=== PATIENT | male | born 1980 | race Caucasian/White ===

== ENCOUNTER 2024-02-16 13:56 | Inpatient (IN) | payer OTHER, SELFPAY ==
[2024-02-16] VITALS (29 sets, daily range): BP systolic 184–281; BP diastolic 78–150; PULSE 70–95; RESP 8–25; TEMP 36.4; O2SAT 95–97; BMI 44.3
--- NOTE | 2024-02-16 | DI.CT.S_ITS ---
PROCEDURE: CT ABDOMEN ADRENAL PROTOCOL INDICATIONS: adrenal tumor TECHNIQUE: Noncontrast 3 mm thick sections acquired from the diaphragms to the iliac crests. After the administration of intravenous contrast, 3 mm thick venous-phase and 15-minute delayed images acquired from the diaphragms to the iliac crests. For radiation dose reduction, the following was used: automated exposure control, adjustment of mA and/or kV according to patient size. COMPARISON: [facility], CR, XR CHEST 1V, 02/16/2024, 14:07. FINDINGS: Image quality: Excellent. Lower chest: Unremarkable. ABDOMEN: Adrenal Glands: No adrenal nodules or abnormal enhancement. Liver: No solid mass. Hepatic hypoattenuation. Mild hepatomegaly measuring up to 20.3 cm in the craniocaudal dimension (57) Gallbladder: No radiopaque gallstones or wall thickening. Biliary ducts: No biliary dilation. Pancreas: No ductal dilation. Spleen: Size is within normal limits. Kidneys and Ureters: No hydronephrosis. No solid mass. No complex renal cystic lesion which requires follow up. Stomach and Bowel: Normal colonic caliber, without significant wall thickening. No bowel obstruction in the field of view. Peritoneum: No abnormal intraperitoneal fluid. No free air. Ventral Wall: No hernia. Abdominal Nodes: No retroperitoneal or mesenteric adenopathy by size criteria. Vessels: Aorta and inferior vena cava are normal in size. Bones: No acute osseous abnormality. Diffuse idiopathic skeletal hyperostosis of the thoracolumbar spine () IMPRESSION: 1. No adrenal mass or nodularity. 2. Hepatomegaly with hepatic steatosis. Dictated by: Avinash Vargas M.D. on 02/17/2024 at 0:24 Approved by: Avinash Vargas M.D. on 02/17/2024 at 0:31
--- NOTE | 2024-02-16 14:09 | EKG_ITS ---
[address] [address] Test Date: 2024-02-16 Pat Name: Robert Arceo Department: [facility] Room: Gender: Male Public Relations Account Supervisor: ILANA : 1980 Requested By: Order Number: [id number] Reading MD: Derrick Erazo Measurements Intervals [place] Rate: 110 P: 38 MD: 158 QRS: -10 QRSD: 94 T: 102 QT: 362 QTc: 489 Interpretive Statements NSR Nonspecific ST and T wave abnormality Electronically Signed On 02-19-2024 15:53:36 PDT by Derrick Erazo
--- NOTE | 2024-02-16 14:09 | DI.RAD.S_ITS ---
PROCEDURE: XR CHEST 1V INDICATIONS: chest pain TECHNIQUE: One view of the chest was acquired. COMPARISON: None. FINDINGS: Surgical changes and devices: None. Lungs and pleura: Lungs are clear. No pleural effusions or pneumothorax. Mediastinum: Mediastinal contours appear normal. Heart size is normal. Bones and chest wall: No suspicious bony lesions. Overlying soft tissues appear unremarkable. IMPRESSION: No acute cardiopulmonary abnormality is seen. Dictated by: yR Crews M.D. on 02/16/2024 at 15:33 Approved by: Ry Crews M.D. on 02/16/2024 at 15:34
--- NOTE | 2024-02-16 14:34 | EKG_ITS ---
[address] [address] [place] [address] Test Date: 2024-02-16 Pat Name: Robert Arceo Department: [facility] Room: 90B Gender: Male Coding Quality Analyst: ILANA : 1980 Requested By: Order Number: [id number] Reading MD: Derrick Erazo Measurements Intervals [place] Rate: 109 P: 48 NC: 152 QRS: -11 QRSD: 96 T: 113 QT: 348 QTc: 468 Interpretive Statements Undetermined rhythm Nonspecific ST and T wave abnormality Electronically Signed On 02-19-2024 15:54:10 PDT by Derrick Erazo
--- NOTE | 2024-02-16 14:36 | EKG_ITS ---
[address] [address] [place] [address] Test Date: 2024-02-16 Pat Name: Robert Arceo Department: [facility] Room: 90B Gender: Male Director And Professor: ILANA : 1980 Requested By: Order Number: [id number] Reading MD: Derrick Erazo Measurements Intervals [place] Rate: 111 P: 36 FL: 146 QRS: -13 QRSD: 94 T: 82 QT: 362 QTc: 492 Interpretive Statements NSR Nonspecific ST and T wave abnormality Electronically Signed On 02-19-2024 15:54:04 PDT by Derrick Erazo
[2024-02-16 14:51] LABS: Add Manual Diff / Slide Review NO; Basophils Absolute Auto 100 /uL (0-100); Basophils Percent Auto 0.5 % (0-2); Eosinophils Absolute Auto 200 /uL (0-450); Eosinophils Percent Auto 1.3 % (2-4); Hemoglobin 15.1 g/dL (13.5-17.5); Lymphocytes Absolute Auto 3200 /uL (1100-4500); Lymphocytes Percent Auto 24.3 % (25-40); Mean Corpuscular HGB Conc 34.3 % (30-36); Mean Corpuscular Hemoglobin 28.1 PG (26-34); Mean Corpuscular Volume 81.9 fL (80-100); Monocytes Absolute Auto 800 /uL (0-900); Monocytes Percent Auto 5.9 % (3-14); Neutrophils Absolute Auto 8900 /uL (1500-7000); Platelet Count 293 X10^3/uL (150-400); Red Blood Cell Count 5.37 X10^6/uL (4.5-5.9)
[2024-02-16 14:59] LABS: INR 1.2 (0.9-1.3); Prothrombin Time 13.2 SECONDS (9.4-12.5)
[2024-02-16 15:01] LABS: PTT Partial Thromboplastin Tim 40 SECONDS (25.1-36.5)
[2024-02-16 15:07] LABS: Alanine Aminotransferase 28 IU/L (<50); Albumin 4.6 g/dL (3.5-5.0); Albumin Globulin Ratio 1.2 (1.0-2.8); Alkaline Phosphatase 86 U/L (38-126); Aspartate Aminotransferase 28 IU/L (17-59); BUN Creatinine Ratio 10.5 (6-22); Bilirubin Total 0.9 mg/dL (0.2-1.3); Blood Urea Nitrogen 13 mg/dL (9-20); Calcium 9.1 mg/dL (8.4-10.2); Carbon Dioxide 36 mmol/L (22-32); Chloride 96 mmol/L (98-107); Creatine Kinase 138 U/L (55-170); Estimated Glomerular Filt Rate > 60 mL/min (>60); Globulin 3.7 g/dL (1.7-4.1); Glucose 125 mg/dL (70-100); HEMOLYSIS < 15 (0-50); Lipase 66 U/L (23-300); Magnesium 1.8 mg/dL (1.6-2.3); Sodium 140 mmol/L (137-145); Total Protein 8.3 g/dL (6.3-8.2)
[2024-02-16 15:09] LABS: D Dimer 562 ng/ml (<500)
[2024-02-16 15:10] LABS: Potassium 2.2 mmol/L (3.4-5.1)
[2024-02-16] MEDS: METOPROLOL TARTRATE 5 MG/5 ML INJ IV (15:10)
[2024-02-16] MEDS: ASPIRIN 81 MG CHEW TAB 324 MG PO (15:10)
[2024-02-16 15:15] LABS: NT-proBNP (BNP-Adult 18+) 882 pg/mL (<125); Troponin I 0.018 ng/mL (0.01-0.034)
[2024-02-16] MEDS: POTASSIUM CHLORIDE 20 MEQ TAB 40 MEQ PO (15:23)
[2024-02-16] MEDS: POTASSIUM CHLORIDE IN WATER 10 MEQ/100 ML PIGGYBACK 100 MEQ IV ×4 (15:24→19:13)
--- NOTE | 2024-02-16 15:51 | ED_ITS ---
HPI - General Adult General Chief complaint: Hypertension Stated complaint: high bp Time Seen by Provider: 02/16/24 14:42 Source: patient Mode of arrival: Ambulatory History of Present Illness HPI narrative: Patient is a 43-year-old male who does not take any medications has not been to a doctor in a number of years presenting today with palpitations. He reports that he travels frequently for work however the last couple of days he has been having more and more palpitations. Denies any dizziness or lightheadedness he has not passed out. No significant pain. Related Data Previous Rx's Medication Instructions Recorded lisinopril 20 2 tab PO QDAY #30 tabs 09/09/19 mg-hydrochlorothiazide 12.5 mg tablet ciprofloxacin 0.3 %-dexamethasone 4 drop otic (ear) BID 7 days #7.5 02/20/20 0.1 % ear drops,suspension mL (Ciprodex) Allergies Allergy/AdvReac Type Severity Reaction Status Date / Time No Known Drug Allergies Allergy Verified 02/16/24 14:09 Patient History Surgical History Status post myringotomy with insertion of tube History of tonsillectomy Status post knee surgery Family History Brother Age: 39 Essential hypertension Father Essential hypertension Grandfather Age: 85 Essential hypertension Grandmother Age: 84 Essential hypertension Mother Age: 62 Essential hypertension Grandfather Cerebrovascular accident (CVA), unspecified mechanism Grandmother Dementia Social History Smoking Status: Never smoker Smoking Status: Never smoker alcohol intake frequency: a few times a month Substance Use Type: does not use Exam Initial Vital Signs Initial Vital Signs: Vital Signs Temperature 97.6 F 02/16/24 14:03 Pulse Rate 72 02/16/24 14:03 Respiratory Rate 16 02/16/24 14:03 Blood Pressure 227/129 H 02/16/24 14:03 Pulse Oximetry 96 02/16/24 14:03 Oxygen Delivery Method Room Air 02/16/24 14:03 GENERAL: Alert pleasant 43-year-old male and in no acute distress. HEENT: Head atraumatic,EOMI, pupils reactive, face symmetric, moist mucous membranes CARDIOVASCULAR: Regular rate and rhythm without murmurs, rubs or gallops. RESPIRATORY: Breath sounds equal bilaterally, no wheezes rales or rhonchi. ABDOMEN: Soft, nontender. Normoactive bowel sounds all 4 quadrants. No guarding or rebound. EXTREMITIES: Normal range of motion, no clubbing or edema. Neurovascularly intact NEUROLOGICAL: Alert and oriented x4.Normal gait and speech. Cranial nerves II through XII grossly intact. SKIN: Warm, dry, no laceration, no petechiae, no rashes or lesions. Course Orders Ordered: ED Orders 02/16/24 14:09 XR chest 1V Stat EKG-12 Lead Stat 02/16/24 14:29 Complete Blood Count AUTO DIFF Stat Comprehensive Metabolic Panel Stat D Dimer Stat Lipase Stat Magnesium Stat NT-proBNP (BNP-Adult 18+) Stat PTT Partial Thromboplastin Maikol Stat Prothrombin Time INR Stat Troponin & CK Cardiac Panel Stat 02/16/24 16:03 EC echo doppler complete Stat 02/16/24 16:09 EKG-12 Lead Stat Acetaminophen (Acetaminophen 325 Mg Tablet) 650 mg PO Q6H PRN PRN Reason: Fever/Mild Pain (1-3) Hydralazine HCl (Hydralazine 20 Mg/Ml Vial) 10 mg IV Q6HR PRN PRN Reason: Hypertension SBP > 180 Last Admin: 02/16/24 19:10 Dose: 10 mg Documented By: AYDEE POTASSIUM CHLORIDE IN WATER (Potassium Cl 10 Meq/100 Ml Julisa) 10 meq in 100 mls @ 100 mls/hr IV Q1H VERENA Stop: 02/16/24 19:14 Last Infusion: 02/16/24 19:09 Dose: Infused Documented By: Admin: 02/16/24 17:54 Dose: 100 mls/hr Documented By: Infusion: 02/16/24 17:53 Dose: Infused Documented By: Admin: 02/16/24 16:27 Dose: 100 mls/hr Documented By: Infusion: 02/16/24 16:27 Dose: Infused Documented By: Admin: 02/16/24 15:24 Dose: 100 mls/hr Documented By: ANGELINA Naloxone HCl (Naloxone 0.4 Mg/Ml Vial) 0.2 mg IV Q2MIN PRN PRN Reason: Opiate Reversal Discontinued Medications Aspirin (Aspirin 81 Mg Chew Tab) 324 mg PO NOW ONE Stop: 02/16/24 14:10 Last Admin: 02/16/24 15:10 Dose: 324 mg Documented By: SB Metoprolol Tartrate (Metoprolol Tartrate 5 Mg/5 Ml Inj) 5 mg IV NOW ONE Stop: 02/16/24 14:44 Last Admin: 02/16/24 15:10 Dose: 5 mg Documented By: ANGELINA Potassium Chloride (Potassium Chloride 20 Meq Tab) 40 meq PO NOW ONE Stop: 02/16/24 15:11 Last Admin: 02/16/24 15:23 Dose: 40 meq Documented By: SB Vital Signs Vital signs: Vital Signs - 8 hr 02/16/24 14:03 02/16/24 16:00 Temperature 97.6 F Pulse Rate 72 Respiratory Rate 16 Blood Pressure 227/129 H 274/146 H Pulse Oximetry 96 Oxygen Delivery Method Room Air Medical Decision Making Lab Data 02/16/24 14:29 02/16/24 14:29 Labs: Lab Results 02/16/24 Range/Units 14:29 WBC 13.0 H (4.5-11.0) X10^3/uL RBC 5.37 (4.5-5.9) X10^6/uL Hgb 15.1 (13.5-17.5) g/dL Hct 44.0 (41-53) % MCV 81.9 (80-100) fL MCH 28.1 (26-34) PG MCHC 34.3 (30-36) % RDW 14.0 (11.6-14.8) % Plt Count 293 (150-400) X10^3/uL Neut % (Auto) 68.0 (50-75) % Lymph % (Auto) 24.3 L (25-40) % [place] % (Auto) 5.9 (3-14) % Eos % (Auto) 1.3 L (2-4) % Baso % (Auto) 0.5 (0-2) % Neut # (Auto) 8900 H (9252-6774) /uL Lymph # (Auto) 3200 (1051-3314) /uL [place] # (Auto) 800 (0-900) /uL Eos # (Auto) 200 (0-450) /uL Baso # (Auto) 100 (0-100) /uL PT 13.2 H (9.4-12.5) SECONDS INR 1.2 (0.9-1.3) APTT 40 H (25.1-36.5) SECONDS D-Dimer 562 H (<500) ng/ml Sodium 140 (137-145) mmol/L Potassium 2.2 L* (3.4-5.1) mmol/L Chloride 96 L (98-107) mmol/L Carbon Dioxide 36 H (22-32) mmol/L BUN 13 (9-20) mg/dL Creatinine 1.24 (0.66-1.25) mg/dL Estimated GFR > 60 (>60) mL/min BUN/Creatinine Ratio 10.5 (6-22) Glucose 125 H (70-100) mg/dL Calcium 9.1 (8.4-10.2) mg/dL Magnesium 1.8 (1.6-2.3) mg/dL Total Bilirubin 0.9 (0.2-1.3) mg/dL AST 28 (17-59) IU/L ALT 28 (<50) IU/L Alkaline Phosphatase 86 (38-126) U/L Total Creatine Kinase 138 (55-170) U/L Troponin I 0.018 (0.01-0.034) ng/mL NT-Pro-B Natriuret Pep 882 H (<125) pg/mL Total Protein 8.3 H (6.3-8.2) g/dL Albumin 4.6 (3.5-5.0) g/dL Globulin 3.7 (1.7-4.1) g/dL Albumin/Globulin Ratio 1.2 (1.0-2.8) Lipase 66 (23-300) U/L Imaging Data Chest x-ray: Radiologist's Impression: PROCEDURE: XR CHEST 1V INDICATIONS: chest pain TECHNIQUE: One view of the chest was acquired. COMPARISON: None. FINDINGS: Surgical changes and devices: None. Lungs and pleura: Lungs are clear. No pleural effusions or pneumothorax. Mediastinum: Mediastinal contours appear normal. Heart size is normal. Bones and chest wall: No suspicious bony lesions. Overlying soft tissues appear unremarkable. IMPRESSION: No acute cardiopulmonary abnormality is seen. Dictated by: Ry Crews M.D. on 02/16/2024 at 15:33 ECG Data Attestation: I personally reviewed and interpreted this ECG as follows: Interpretation: Initial EKGs difficult to interpret looks like sinus rhythm with frequent PVCs PACs no obvious ST changes EKG 2. Shows sinus rhythm rate 92 AL interval 148 QRS [address] changes no PVCs MDM Narrative Medical decision making narrative: MDM CC: Palpitations Complicating co-morbidities: Noncompliant Medical records reviewed: No real PCP notes was seen at walk-in clinic in 2019 Differential considered: Arrhythmia acute coronary syndrome Exam documented above, pertinent findings include: Alert pleasant well- appearing 43-year-old male BMI 40 Lab Test results independently reviewed as above. Pertinent findings: Potassium 2.2 Creatinine 1.2 previously 0.9 and 2016 WBC 13 D-dimer 562 Independently reviewed EKG as above: Arrhythmia frequent PVCs wider complex Repeat EKGs shows a sinus rhythm without ST changes or PVC Imaging studies independently reviewed: Consultations: Dr. Lazcano accepts patient Treatments: Lopressor 5 mg, K rider 40 and oral potassium Re-evaluations: Patient's EKG actually changed and improved after metoprolol. No longer having any PVCs Discussion: Patient 43-year-old male presenting to palpitations. Found to be extremely hypokalemic with potassium of 2.2. Unclear why, he denies any nausea vomiting or diarrhea he reports he is taking absolutely no medications. He was previously on hydrochlorothiazide/lisinopril but he says he was not able to get a refill on that without being seen by his provider. He also remains quite hypertensive with a blood pressure in the 200s. Troponin is negative BNP slightly elevated at 882 Discharge Plan Departure Patient Disposition: Admitted as Observation Clinical Impression: Acute hypokalemia, Hypertension Admit Date/Time: 02/16/24 16:09 Admit Provider: Michael Lazcano V
--- NOTE | 2024-02-16 16:21 | EKG_ITS ---
[address] [address] Test Date: 2024-02-16 Pat Name: Robert Arceo Department: Room: 90B Gender: Male Service Operator: ILANA : 1980 Requested By: Order Number: [id number] Reading MD: Derrick Erazo Measurements Intervals [place] Rate: 92 P: 36 IL: 184 QRS: -28 QRSD: 84 T: 57 QT: 384 QTc: 474 Interpretive Statements Normal sinus rhythm Nonspecific ST and T wave abnormality Electronically Signed On 02-19-2024 15:53:49 PDT by Derrick Erazo
--- NOTE | 2024-02-16 18:05 | PC.NURSE ---
Dr. Lazcano present at bedside for admission assessment. This RN assisted with doing bilateral BP assessment for Dr. Lazcano. Patient's BP continues to be significantly high. Right forearm BP was 247/134 and Left forearm BP was 280/140. Dr. Lazcano acknowledges high BP, no new orders for BP management given at this time. Dr. Lazcano does request that nursing staff begin 24 hour urine collection. Start time for this test is 1800. Lab contacted for proper collection containers.
--- NOTE | 2024-02-16 18:38 | P.HP_ITS ---
History of Present Illness History of Present Illness Date Patient Seen: 02/16/24 Time Patient Seen: 18:10 Date of Onset of Symptoms: 02/16/24 Chief complaint: high bp Narrative: 43-year-old man on who has not seen a primary care provider in several years, with history of hypertension, similarly off medications for the past several years, presented today with palpitations. He was found to have a serum potassium of 2.2 with EKG changes and was administered IV potassium riders, and experienced improvement in his palpitations and normalization of his EKG patterns. He is admitted for further management and evaluation. He notes a long-standing history of hypertension dating back to age 13. Previous workup has been unrevealing. He was on lisinopril/hydrochlorothiazide for many years but stopped over 5 years ago due to his frequent travel schedule, and inability to arrange office follow-up visits. He denies chest pain, shortness of breast, nausea, vomiting, diarrhea, diuretic use, muoa-ryx-kryiabd supplements besides vitamin C and fish oil, licorice ingestion, but does note a significant family history of high blood pressure. [facility], [facility] Surgical History Status post myringotomy with insertion of tube History of tonsillectomy Status post knee surgery Family History Brother Age: 39 Essential hypertension Father Essential hypertension Grandfather Age: 85 Essential hypertension Grandmother Age: 84 Essential hypertension Mother Age: 62 Essential hypertension Grandfather Cerebrovascular accident (CVA), unspecified mechanism Grandmother Dementia Social History Smoking Status: Never smoker Meds Home Medications and Allergies Home Medications Medication Instructions Recorded Confirmed Type lisinopril 20 2 tab PO QDAY #30 tabs 09/09/19 02/20/20 Rx mg-hydrochlorothiazide 12.5 mg tablet ciprofloxacin 0.3 %-dexamethasone 4 drop otic (ear) BID 7 days #7.5 02/20/20 02/20/20 Rx 0.1 % ear drops,suspension mL (Ciprodex) Allergies Allergy/AdvReac Type Severity Reaction Status Date / Time No Known Drug Allergies Allergy Verified 02/16/24 14:09 Exam Vital Signs (past 8 hours): - 02/16/24 14:03 02/16/24 16:00 02/16/24 16:11 Temperature 97.6 F Pulse Rate 72 89 Respiratory Rate 16 Blood Pressure 227/129 H 274/146 H Pulse Oximetry 96 Oxygen Delivery Method Room Air 02/16/24 16:17 02/16/24 16:17 02/16/24 16:27 Temperature Pulse Rate 92 H 93 H Respiratory Rate 22 Blood Pressure 281/142 H Pulse Oximetry 95 96 Oxygen Delivery Method 02/16/24 16:27 02/16/24 16:30 02/16/24 16:30 Temperature Pulse Rate 85 Respiratory Rate 8 L Blood Pressure 251/126 H 223/113 H Pulse Oximetry 96 Oxygen Delivery Method 02/16/24 17:00 02/16/24 17:00 02/16/24 17:30 Temperature Pulse Rate 85 89 Respiratory Rate 13 15 Blood Pressure 230/118 H 243/141 H Pulse Oximetry 96 96 Oxygen Delivery Method 02/16/24 17:36 Temperature Pulse Rate 86 Respiratory Rate 13 Blood Pressure 244/148 H Pulse Oximetry 97 Oxygen Delivery Method Room Air Oxygen Delivery Method Room Air Narrative Exam Narrative: GENERAL: This is a well-nourished, well-developed patient, in no apparent distress. blood pressure right forearm 247/134, blood pressure left forearm 280/140 supine. HEAD: Atraumatic. Normocephalic. No temporal or scalp tenderness. EYES: Pupils equal round and reactive. Extraocular motions intact. No scleral icterus. No injection or drainage. ENT: Mucous membranes pink and moist. NECK: Trachea midline. No JVD, bruits or lymphadenopathy. Supple, nontender, no meningeal signs. CARDIOVASCULAR: Regular rate and rhythm without murmurs, gallops, or rubs. RESPIRATORY: Clear to auscultation. GASTROINTESTINAL: Abdomen soft, non-tender, nondistended. EXTREMITIES: No clubbing, cyanosis, or edema. BACK: Nontender without deformity or crepitance. No flank tenderness. NEUROLOGIC: Alert, oriented, speech fluent, full upper and lower motor strength, no focal deficits evident. DERMATOLOGIC: No rashes or skin lesions. Objective ECG Impression: EKG (1434): Sinus rhythm with bigeminal PVCs, normal intervals, no U-waves Repeat EKG viewed in the ER shows sinus rhythm with resolution of PVCs. Imaging Chest x-ray: My impression: Normal cardiac and mediastinal silhouette, no rib notching Radiologist's impression: No acute cardiopulmonary abnormality is seen. Labs 02/16/24 14:29 02/16/24 14:29 Labs: Laboratory Results - last 24 hr 02/16/24 14:29 WBC 13.0 H RBC 5.37 Hgb 15.1 Hct 44.0 MCV 81.9 MCH 28.1 MCHC 34.3 RDW 14.0 Plt Count 293 Neut % (Auto) 68.0 Lymph % (Auto) 24.3 L [place] % (Auto) 5.9 Eos % (Auto) 1.3 L Baso % (Auto) 0.5 Neut # (Auto) 8900 H Lymph # (Auto) 3200 [place] # (Auto) 800 Eos # (Auto) 200 Baso # (Auto) 100 PT 13.2 H INR 1.2 APTT 40 H D-Dimer 562 H Sodium 140 Potassium 2.2 L* Chloride 96 L Carbon Dioxide 36 H BUN 13 Creatinine 1.24 Estimated GFR > 60 BUN/Creatinine Ratio 10.5 Glucose 125 H Calcium 9.1 Magnesium 1.8 Total Bilirubin 0.9 AST 28 ALT 28 Alkaline Phosphatase 86 Total Creatine Kinase 138 Troponin I 0.018 NT-Pro-B Natriuret Pep 882 H Total Protein 8.3 H Albumin 4.6 Globulin 3.7 Albumin/Globulin Ratio 1.2 Lipase 66 Assessment & Plan Assessment & Plan narrative: 1. Severe hypokalemia. Strongly suspect underlying primary hyperaldosteronism given severe hypertension diagnosis. Check serum plasma renin activity, 24 hour urine for VMA and metanephrines, and adrenal protocol CT. Replete potassium and monitor closely on telemetry. 2. EKG changes due to 1. Resolving with repletion of hypokalemia. Monitor on telemetry. 3. Severe hypertension. Suspect primary hyperaldosteronism. Evaluate as detailed above. Administer hydralazine 10 mg every 6 hours as needed for SBP greater than equal to 180 mmHg. 4. Obesity. 5. DVT prophylaxis: Low risk. 6. Code status: Full code. Time-Based Coding :: [TOTAL MINUTES] spent with patient and on the chart (including review of chart, obtaining history, exam, reviewing outside data, placing orders, documenting exam and treatment plan, and counseling patient) on [DATE]. PROFEE Charge Codes Initial inpatient/observation care: [id number]
[2024-02-16] MEDS: HYDRALAZINE 20 MG/ML VIAL 10 MG IV (19:10)
--- NOTE | 2024-02-16 20:05 | PC.NURSE ---
Hospitalist paged in regards to patient's BP continuing to be elevated despite PRN Hydralazine given. Patient was given 10mg IV Hydralazine at 1910, BP reassessed at 1930, BP was 236/123. At 1999 patient's BP was more elevated at 273/139. Awaiting for return call from hospitalist for plan on BP management. Patient denies pain, visual/neuro symptoms. He has been resting on stretcher and visiting with family.
--- NOTE | 2024-02-16 20:07 | PC.NURSE ---
Pt remains hypertensive after PRN hydralazine with SPB now 273. Pt admitted to floor; care discussed with nursing unit clerk-- cannot accept with severe htn Hospitalist messaged for blood pressure management.
--- NOTE | 2024-02-16 20:24 | PC.NURSE ---
Dr Butts, hospitalist, notified of persistent HTN. Verbal order received and read back: labatelol 20mg IV x 1 now Plan to recheck BP 1 hour after admin. If SBP remains >220, anticipate drip.
[2024-02-16] MEDS: LABETALOL 20 MG/4 ML SYRINGE IV (20:27)
--- NOTE | 2024-02-16 21:50 | DI.CT.S_ITS ---
PROCEDURE: CT HEAD/BRAIN WO CON INDICATIONS: hypertensive emergency TECHNIQUE: Noncontrast 4.5 mm thick angled axial sections acquired from the foramen magnum to the vertex, with coronal and sagittal reformats. For radiation dose reduction, the following was used: automated exposure control, adjustment of mA and/or kV according to patient size. COMPARISON: None. FINDINGS: Image quality: Diagnostic. CSF spaces: Basal cisterns are patent. No extra-axial fluid collections. Ventricles are normal in size and shape. Brain: No midline shift. No intracranial masses or hemorrhage. Encinas-white matter interface is normal. Skull and face: Calvarium and visualized facial bones are intact, without suspicious lesions. Sinuses: Visualized sinuses and mastoids are clear. IMPRESSION: No acute intracranial pathology. Dictated by: Avinash Vargas M.D. on 02/16/2024 at 22:33 Approved by: Avinash Vargas M.D. on 02/16/2024 at 22:35
--- NOTE | 2024-02-16 21:50 | PC.NURSE ---
Re-Paged hospitalist to inform him about patient's BP not improving post Labetolol IV administration. Patient remains asymptomatic but blood pressures continue to be elevated >230 systolic, >130 diastolic. Hospitalist requests STAT head CT, Urine Tox, and additional Rx from BP management, including nicardipine gtt. Hospitalist states that patient needs to be ICU status at this time.
[2024-02-16] MEDS: HYDRALAZINE 20 MG/ML VIAL IV (22:06)
[2024-02-16 22:44] LABS: HEMOLYSIS < 15 (0-50)
[2024-02-16] MEDS: NICARDIPINE 25 MG in SODIUM CHLORIDE 0.9% 240 ML 50 MG IV (22:47)
[2024-02-16 22:48] LABS: Potassium 2.4 mmol/L (3.4-5.1)
--- NOTE | 2024-02-16 22:54 | PC.NURSE ---
Dr Butts notified of K 2.4 via messenger
[2024-02-16 23:00] LABS: Ur Creatinine Normal (Normal); Ur Specific Gravity Normal (Normal); Urine Tetrahydrocannabinol Negative (Negative); Urine pH Normal (Normal)
--- NOTE | 2024-02-16 23:00 | PC.NURSE ---
New start time for 24 hour urine collection is 2300 on 02/16/24. Prior collected urine was not placed on ice so it was discarded and new collection container obtained from lab. Patient instructed to use call light after each time voiding so staff can collect urine and place it in container on ice.
[2024-02-16 23:01] LABS: UR Morphine/Opiate cutoff 300 Negative (Negative); Urine Amphetamines Negative (Negative); Urine Barbiturates Negative (Negative); Urine Benzodiazepines Negative (Negative); Urine Cocaine Negative (Negative); Urine MDMA Negative (Negative); Urine Methadone Negative (Negative); Urine Methamphetamines Negative (Negative); Urine Oxycodone Negative (Negative); Urine Phencyclidine Negative (Negative); Urine Tricyclic Antidepressant Negative (Negative)
[2024-02-17] VITALS (101 sets, daily range): BP systolic 141–218; BP diastolic 66–108; PULSE 80–113; RESP 6–39; TEMP 36.6–36.7; O2SAT 91–99; BMI 44.3
[2024-02-17] MEDS: POTASSIUM CHLORIDE 20 MEQ TAB 40 MEQ PO ×3 (00:02→16:16)
[2024-02-17] MEDS: POTASSIUM CHLORIDE IN WATER 10 MEQ/100 ML PIGGYBACK 100 MEQ IV ×15 (00:03→23:25)
[2024-02-17] MEDS: NICARDIPINE 25 MG in SODIUM CHLORIDE 0.9% 240 ML 20 MG IV (06:32)
--- NOTE | 2024-02-17 06:37 | PC.NURSE ---
SBP now elevated >200 after ambulation in basilio. Nicardepine increased to 2.5 mg/hr
--- NOTE | 2024-02-17 06:40 | PC.NURSE ---
Dr Butts messaged to request morning lab orders.
[2024-02-17 07:16] LABS: Add Manual Diff / Slide Review NO; Basophils Absolute Auto 100 /uL (0-100); Basophils Percent Auto 0.5 % (0-2); Eosinophils Absolute Auto 100 /uL (0-450); Eosinophils Percent Auto 0.9 % (2-4); Hematocrit 41.4 % (41-53); Lymphocytes Absolute Auto 1900 /uL (1100-4500); Lymphocytes Percent Auto 15.6 % (25-40); Mean Corpuscular HGB Conc 33.7 % (30-36); Mean Corpuscular Hemoglobin 27.6 PG (26-34); Mean Corpuscular Volume 81.9 fL (80-100); Monocytes Absolute Auto 600 /uL (0-900); Monocytes Percent Auto 4.8 % (3-14); Neutrophils Absolute Auto 9600 /uL (1500-7000); Neutrophils Percent Auto 78.2 % (50-75); Platelet Count 287 X10^3/uL (150-400); Red Blood Cell Count 5.06 X10^6/uL (4.5-5.9); Red Cell Distribution Width 14.7 % (11.6-14.8); White Blood Cell Count 12.3 X10^3/uL (4.5-11.0)
[2024-02-17 07:21] LABS: Blood Urea Nitrogen 12 mg/dL (9-20); Calcium 8.4 mg/dL (8.4-10.2); Carbon Dioxide 32 mmol/L (22-32); Chloride 98 mmol/L (98-107); Estimated Glomerular Filt Rate > 60 mL/min (>60); Glucose 117 mg/dL (70-100); HEMOLYSIS < 15 (0-50); Sodium 138 mmol/L (137-145)
[2024-02-17 07:28] LABS: Potassium 2.3 mmol/L (3.4-5.1)
[2024-02-17] MEDS: SPIRONOLACTONE 25 MG TABLET 50 MG PO (08:06)
[2024-02-17] MEDS: AMLODIPINE 5 MG TABLET 10 MG PO (08:06)
[2024-02-17 08:45] LABS: Magnesium 1.8 mg/dL (1.6-2.3)
--- NOTE | 2024-02-17 11:25 | PC.NURSE ---
Patient remains Alert and oriented in room. Has had family at bedside for visting this am. Patient is in good spirits and dies complaitns. Morning meal offered and tolerating fluids well. Denies complaints at this time. Updated on status of beds in hospital.
--- NOTE | 2024-02-17 11:52 | DI.ECHO.S_ITS ---
[place] [facility]---------+ [facility] : : [address] : : [place] : : [id number] : : Phone: [phone] Echocardiogram Report + + :Name: RANGEL HEREDIA Study Date: 02/17/2024 Height: 59 in : :[facility] ReadingLocation: [place] Weight: 300 lb : : Gender: Male BSA: 2.2 m2 : :: 1980 Age: 43 yrs BP: 193/90 mmHg: :Reason For Study: Hypertension : : Performed By: Naomi Mehta : :Referring: PARAMJIT AHN : + + Interpretation Summary The left ventricle is normal in size. There is mild concentric left ventricular hypertrophy. Left ventricular systolic function is normal. The ejection fraction is estimated to be 65-70%. The right ventricle is normal in size and function. The right ventricular systolic pressure is estimated to be at least 40 mmHg based on an estimated right atrial pressure of 3 mm Hg. The left atrium is moderately dilated. The ascending aorta is mildly enlarged. Procedure: A two-dimensional transthoracic echocardiogram with color flow and Doppler was performed. The study quality was technically adequate. There is no prior echocardiogram noted for this patient. A contrast injection of Definity was performed to improve assessment of LV function. The patient was in sinus tachycardia with heart rates between 97-113 bpm during the exam. The patient had frequent PVCs during the exam. Left Ventricle: The left ventricle is normal in size. There is no echo evidence for significant left ventricular outflow tract obstruction. There is mild concentric left ventricular hypertrophy. Left ventricular systolic function is normal. The ejection fraction is estimated to be 65-70%. There are no focal wall motion abnormalities. Diastolic function could not be accurately assessed due to tachycardia. Right Ventricle: The right ventricle is normal in size and function. Atria: The left atrium is moderately dilated. Right atrial size is normal. There is no Doppler evidence for an interatrial shunt. Mitral Valve: The mitral valve leaflets appear to open well. There is no mitral regurgitation noted. Aortic Valve: The aortic valve is normal in structure and function. There is no aortic valve stenosis. No aortic regurgitation is present. Tricuspid Valve: The tricuspid valve leaflets are thin and pliable. There is a trace or physiologic amount of tricuspid regurgitation. The right ventricular systolic pressure is estimated to be at least 40 mmHg based on an estimated right atrial pressure of 3 mm Hg. Pulmonic Valve: The pulmonic valve leaflets are thin and pliable; valve motion is normal. Great Vessels: The aortic root is normal size. The ascending aorta is mildly enlarged. The aortic arch is normal in size. The main pulmonary artery measures 2.8 cm in size. The IVC is of normal diameter and collapses greater than 50% with a sniff. This suggests a low right atrial pressure of 3 mm Hg. Pericardium/ Pleura There is no pericardial effusion. There is no pleural effusion. MMode/2D Measurements & Calculations LVIDd: 4.7 cm LVOT diam: 2.3 cm LVIDs: 3.0 cm Ao root diam: 3.5 cm FS: 35.7 % asc Aorta Diam: 3.7 cm EPSS: 0.32 cm Ao Arch Diam (Prox Trans): 2.9 cm IVSd: 1.3 cm LVPWd: 1.3 cm LV linder. diameter/BSA (cm/m^2): 2.2 LV sys. diameter/BSA (cm/m^2): 1.4 LA A2 area: 25.7 cm2 RA long axis: 5.1 cm LA A4 area: 23.2 cm2 RA area: 13.6 cm2 LA length (vol): 5.2 cm RA vol: 30.8 ml LA vol: 97.2 ml RA : 14.0 ml/m2 LA vol index: 44.3 ml/m2 IVC diam: 1.7 cm TAPSE: 1.9 cm Doppler Measurements & Calculations Ao V2 max: 178.4 cm/sec LVOT Max Jose: 134.8 cm/sec Ao V2 mean: 141.9 cm/sec LV V1 max P.3 mmHg Ao max P.7 mmHg LV V1 VTI: 22.3 cm Ao mean P.4 mmHg EAMON(I,D): 3.3 cm2 Ao V2 VTI: 28.4 cm EAMON(V,D): 3.1 cm2 sev ratio: 0.79 EAMON indexed to BSA (cm^2/m^2): 1.5 Med Peak E' Jose: 5.9 cm/sec TR max jose: 305.9 cm/sec Lat Peak E' Jose: 9.0 cm/sec TR max P.4 mmHg PA V2 max: 106.7 cm/sec PA V2 mean: 87.8 cm/sec PA mean P.2 mmHg PA pr(Accel): 44.7 mmHg SV(LVOT): 92.9 ml Reading Physician:01:35 PM
[2024-02-17] MEDS: NICARDIPINE 25 MG in SODIUM CHLORIDE 0.9% 240 ML 50 MG IV (11:56)
--- NOTE | 2024-02-17 12:32 | P.PN_ITS ---
Subjective Subjective Date Patient Seen: 02/17/24 Time Patient Seen: 11:50 Interval history: 43-year-old man on who has not seen a primary care provider in several years, with history of hypertension, similarly off medications for the past several years, presented today with palpitations. He was found to have a serum potassium of 2.2 with EKG changes and was administered IV potassium riders, and experienced improvement in his palpitations and normalization of his EKG patterns. He is admitted for further management and evaluation. He notes a long-standing history of hypertension dating back to age 13. Previous workup has been unrevealing. He was on lisinopril/hydrochlorothiazide for many years but stopped over 5 years ago due to his frequent travel schedule, and inability to arrange office follow-up visits. He denies chest pain, shortness of breast, nausea, vomiting, diarrhea, diuretic use, txbf-mal-syefrnh supplements besides vitamin C and fish oil, licorice ingestion, but does note a significant family history of high blood pressure. Interval history: The patient has persistently severe hypertension and hypokalemia, with blood pressures in the 240s systolic range and potassium of 2.3 this morning. Telemetry shows sinus rhythm with intermittent bigeminy. No headache, chest pain or breathing problems, lateralizing weakness or paresthesias. Exam Vital Signs (past 8 hours): - 02/17/24 04:45 02/17/24 04:45 02/17/24 05:00 Pulse Rate 81 89 Respiratory Rate Blood Pressure 166/77 H Pulse Oximetry 93 95 Oxygen Delivery Method 02/17/24 05:00 02/17/24 05:15 02/17/24 05:15 Pulse Rate 90 Respiratory Rate Blood Pressure 184/92 H 190/92 H Pulse Oximetry 96 Oxygen Delivery Method 02/17/24 05:30 02/17/24 05:30 02/17/24 05:33 Pulse Rate 90 92 H Respiratory Rate Blood Pressure 194/94 H Pulse Oximetry 96 97 Oxygen Delivery Method 02/17/24 05:33 02/17/24 05:45 02/17/24 05:45 Pulse Rate 89 Respiratory Rate Blood Pressure 196/95 H 180/96 H Pulse Oximetry 98 Oxygen Delivery Method 02/17/24 06:00 02/17/24 06:00 02/17/24 06:31 Pulse Rate 89 Respiratory Rate Blood Pressure 186/91 H 218/106 H Pulse Oximetry 97 Oxygen Delivery Method 02/17/24 06:31 02/17/24 06:35 02/17/24 06:35 Pulse Rate 96 H 94 H Respiratory Rate Blood Pressure 206/97 H Pulse Oximetry 96 Oxygen Delivery Method 02/17/24 06:45 02/17/24 06:45 02/17/24 07:00 Pulse Rate 91 H 89 Respiratory Rate Blood Pressure 197/96 H Pulse Oximetry 97 98 Oxygen Delivery Method 02/17/24 07:00 02/17/24 07:15 02/17/24 07:15 Pulse Rate 86 Respiratory Rate Blood Pressure 209/100 H 198/96 H Pulse Oximetry 97 Oxygen Delivery Method 02/17/24 07:29 02/17/24 07:29 02/17/24 07:30 Pulse Rate 95 H 92 H Respiratory Rate Blood Pressure 216/101 H Pulse Oximetry 98 98 Oxygen Delivery Method 02/17/24 07:31 02/17/24 07:31 02/17/24 07:33 Pulse Rate 92 H Respiratory Rate Blood Pressure 204/108 H 216/107 H Pulse Oximetry 97 Oxygen Delivery Method 02/17/24 07:33 02/17/24 07:45 02/17/24 07:45 Pulse Rate 92 H 89 Respiratory Rate Blood Pressure 195/90 H Pulse Oximetry 98 98 Oxygen Delivery Method 02/17/24 08:00 02/17/24 08:00 02/17/24 08:15 Pulse Rate 96 H Respiratory Rate Blood Pressure 188/88 H 189/85 H Pulse Oximetry 99 Oxygen Delivery Method 02/17/24 08:15 02/17/24 08:30 02/17/24 08:30 Pulse Rate 92 H 97 H Respiratory Rate Blood Pressure 201/93 H Pulse Oximetry 97 97 Oxygen Delivery Method 02/17/24 08:45 02/17/24 08:45 02/17/24 09:00 Pulse Rate 99 H Respiratory Rate Blood Pressure 196/88 H 192/88 H Pulse Oximetry 98 Oxygen Delivery Method 02/17/24 09:00 02/17/24 09:15 02/17/24 09:15 Pulse Rate 93 H 89 Respiratory Rate Blood Pressure 190/87 H Pulse Oximetry 97 93 Oxygen Delivery Method 02/17/24 09:30 02/17/24 09:30 02/17/24 09:45 Pulse Rate 91 H 92 H Respiratory Rate Blood Pressure 182/83 H Pulse Oximetry 95 96 Oxygen Delivery Method 02/17/24 09:45 02/17/24 10:00 02/17/24 10:00 Pulse Rate 89 Respiratory Rate Blood Pressure 184/84 H 182/83 H Pulse Oximetry 92 Oxygen Delivery Method 02/17/24 10:15 02/17/24 10:19 02/17/24 10:19 Pulse Rate 89 90 Respiratory Rate Blood Pressure 141/75 H Pulse Oximetry 91 94 Oxygen Delivery Method 02/17/24 10:30 02/17/24 10:40 02/17/24 10:40 Pulse Rate 91 H 97 H Respiratory Rate Blood Pressure 185/91 H Pulse Oximetry 94 97 Oxygen Delivery Method 02/17/24 10:45 02/17/24 10:45 02/17/24 11:00 Pulse Rate 94 H Respiratory Rate Blood Pressure 188/90 H 190/88 H Pulse Oximetry 98 Oxygen Delivery Method 02/17/24 11:00 02/17/24 11:15 02/17/24 11:15 Pulse Rate 93 H 96 H Respiratory Rate 20 Blood Pressure 192/90 H Pulse Oximetry 98 98 Oxygen Delivery Method Room Air 02/17/24 11:30 02/17/24 11:30 02/17/24 12:00 Pulse Rate 101 H 107 H Respiratory Rate Blood Pressure 193/90 H Pulse Oximetry 97 Oxygen Delivery Method 02/17/24 12:02 02/17/24 12:02 02/17/24 12:15 Pulse Rate 113 H Respiratory Rate 20 Blood Pressure 198/93 H 187/81 H Pulse Oximetry 98 Oxygen Delivery Method Room Air 02/17/24 12:15 Pulse Rate 105 H Respiratory Rate Blood Pressure Pulse Oximetry 97 Oxygen Delivery Method Oxygen Delivery Method Room Air Narrative Exam Narrative: GENERAL: This is a well-nourished, well-developed patient, in no apparent distress. EYES: Pupils equal round and reactive. Extraocular motions intact. No scleral icterus. No injection or drainage. ENT: Mucous membranes pink and moist. NECK: Trachea midline. No JVD, bruits or lymphadenopathy. Supple, nontender, no meningeal signs. CARDIOVASCULAR: Regular rate and rhythm without murmurs, gallops, or rubs. RESPIRATORY: Clear to auscultation. GASTROINTESTINAL: Abdomen soft, non-tender, nondistended. EXTREMITIES: No clubbing, cyanosis, or edema. NEUROLOGIC: Alert, oriented, speech fluent, full upper and lower motor strength, no focal deficits evident. DERMATOLOGIC: No rashes or skin lesions. Objective Imaging CT scan - head: Radiologist's impression: No acute intracranial pathology CT scan - abdomen: Radiologist's impression: 1. No adrenal mass or nodularity. 2. Hepatomegaly with hepatic steatosis. Labs 02/17/24 06:58 02/17/24 06:58 Labs: Laboratory Results - last 24 hr 02/16/24 02/16/24 02/16/24 14:29 22:29 22:41 WBC 13.0 H RBC 5.37 Hgb 15.1 Hct 44.0 MCV 81.9 MCH 28.1 MCHC 34.3 RDW 14.0 Plt Count 293 Neut % (Auto) 68.0 Lymph % (Auto) 24.3 L Benson % (Auto) 5.9 Eos % (Auto) 1.3 L Baso % (Auto) 0.5 Neut # (Auto) 8900 H Lymph # (Auto) 3200 Benson # (Auto) 800 Eos # (Auto) 200 Baso # (Auto) 100 PT 13.2 H INR 1.2 APTT 40 H D-Dimer 562 H Sodium 140 Potassium 2.2 L* 2.4 L* Chloride 96 L Carbon Dioxide 36 H BUN 13 Creatinine 1.24 Estimated GFR > 60 BUN/Creatinine Ratio 10.5 Glucose 125 H Calcium 9.1 Magnesium 1.8 Total Bilirubin 0.9 AST 28 ALT 28 Alkaline Phosphatase 86 Total Creatine Kinase 138 Troponin I 0.018 NT-Pro-B Natriuret Pep 882 H Total Protein 8.3 H Albumin 4.6 Globulin 3.7 Albumin/Globulin Ratio 1.2 Lipase 66 U Opiates 300ng/mL cut Negative Ur Oxycodone Screen Negative Urine Methadone Screen Negative Ur Barbiturates Screen Negative U Tricyclic Antidepress Negative Ur Phencyclidine Scrn Negative Ur Amphetamines Screen Negative U Methamphetamines Scrn Negative Ur MDMA Scrn (Ecstasy) Negative U Benzodiazepines Scrn Negative Urine Cocaine Screen Negative U Marijuana (THC) Screen Negative Urine pH Normal Urine Specific [place] Normal Ur Creatinine Normal 02/17/24 06:58 WBC 12.3 H RBC 5.06 Hgb 14.0 Hct 41.4 MCV 81.9 MCH 27.6 MCHC 33.7 RDW 14.7 Plt Count 287 Neut % (Auto) 78.2 H Lymph % (Auto) 15.6 L Benson % (Auto) 4.8 Eos % (Auto) 0.9 L Baso % (Auto) 0.5 Neut # (Auto) 9600 H Lymph # (Auto) 1900 Benson # (Auto) 600 Eos # (Auto) 100 Baso # (Auto) 100 PT INR APTT D-Dimer Sodium 138 Potassium 2.3 L* Chloride 98 Carbon Dioxide 32 BUN 12 Creatinine 0.80 Estimated GFR > 60 BUN/Creatinine Ratio 15.0 Glucose 117 H Calcium 8.4 Magnesium 1.8 Total Bilirubin AST ALT Alkaline Phosphatase Total Creatine Kinase Troponin I NT-Pro-B Natriuret Pep Total Protein Albumin Globulin Albumin/Globulin Ratio Lipase U Opiates 300ng/mL cut Ur Oxycodone Screen Urine Methadone Screen Ur Barbiturates Screen U Tricyclic Antidepress Ur Phencyclidine Scrn Ur Amphetamines Screen U Methamphetamines Scrn Ur MDMA Scrn (Ecstasy) U Benzodiazepines Scrn Urine Cocaine Screen U Marijuana (THC) Screen Urine pH Urine Specific Emigrant Ur Creatinine PFSH Surgical History Status post myringotomy with insertion of tube History of tonsillectomy Status post knee surgery Family History Brother Age: 39 Essential hypertension Father Essential hypertension Grandfather Age: 85 Essential hypertension Grandmother Age: 84 Essential hypertension Mother Age: 62 Essential hypertension Grandfather Cerebrovascular accident (CVA), unspecified mechanism Grandmother Dementia Social History Smoking Status: Never smoker Assessment & Plan Assessment & Plan narrative: 1. Severe hypokalemia. Strongly suspect underlying primary hyperaldosteronism given severe hypertension diagnosis. Check serum plasma renin activity, 24 hour urine for VMA and metanephrines. No masses on adrenal protocol CT. No exogenous licorice ingestion. Replete potassium and monitor closely on telemetry. 2. EKG changes due to 1. Resolving with repletion of hypokalemia. Monitor on telemetry. 3. Severe hypertension. Echocardiogram pending. Suspect primary hyperaldosteronism. Evaluate as detailed above. Start amlodipine 10 mg daily and spironolactone 50 mg daily. Stop nicardipine drip and transition to hydralazine 20 mg every 4 hours as needed for SBP greater than equal to 180 mmHg. 4. Obesity. 5. DVT prophylaxis: Low risk. 6. Code status: Full code. Time-Based Coding :: [TOTAL MINUTES] spent with patient and on the chart (including review of chart, obtaining history, exam, reviewing outside data, placing orders, documenting exam and treatment plan, and counseling patient) on [DATE]. PROFEE Charge codes Subsequent inpatient/observation care: 30646
[2024-02-17] MEDS: HYDRALAZINE 20 MG/ML VIAL IV ×2 (12:39→16:16)
--- NOTE | 2024-02-17 13:33 | PC.NURSE ---
In room with patient at 1321. Patient lying in bed talking with nurse, relaxed. Run of Vtach (26beats) alerted. patient denied contributing symptoms. Pressure 187/88, after episode. Dr. Lazcano contacted by phone. Provider stated he would call pharmacy and to watch for amiodorone order. Still awaiting bed in ICU. Patient updated and sons at bedside.
[2024-02-17] MEDS: AMIODARONE 150 MG/100 ML PIGGYBACK 600 MG IV (14:04)
[2024-02-17] MEDS: ACETAMINOPHEN 325 MG TABLET 650 MG PO (14:06)
[2024-02-17] MEDS: AMIODARONE 360 MG/200 ML PIGGYBACK 33.333 MG IV (14:27)
--- NOTE | 2024-02-17 16:05 | PC.NURSE ---
1545--Patient transfered to ICU room 226 with telemonitoring and 2 RN. Potassium 10meq at 100ml/hr and amiodorone at 33.33mg/hr. Pt transfered to [facility]. Report called to Elena. 24 hour collection sent to pt room.
[2024-02-17 17:03] LABS: MRSA (Nasal) PCR NOT DETECTED (Not Detect)
[2024-02-17] MEDS: AMIODARONE 360 MG/200 ML PIGGYBACK 16.7 MG IV (19:35)
[2024-02-17 20:23] LABS: Magnesium 1.8 mg/dL (1.6-2.3); Potassium 2.6 mmol/L (3.4-5.1)
[2024-02-17 20:24] LABS: HEMOLYSIS < 15 (0-50)
[2024-02-18] VITALS (31 sets, daily range): BP systolic 138–216; BP diastolic 67–106; PULSE 79–102; RESP 11–42; TEMP 36.3; O2SAT 94–99
[2024-02-18] MEDS: POTASSIUM CHLORIDE IN WATER 10 MEQ/100 ML PIGGYBACK 100 MEQ IV ×7 (01:23→13:45)
[2024-02-18 05:11] LABS: BUN Creatinine Ratio 11.1 (6-22); Blood Urea Nitrogen 10 mg/dL (9-20); Calcium 8.3 mg/dL (8.4-10.2); Carbon Dioxide 31 mmol/L (22-32); Chloride 99 mmol/L (98-107); Estimated Glomerular Filt Rate > 60 mL/min (>60); Glucose 101 mg/dL (70-100); HEMOLYSIS < 15 (0-50); Sodium 135 mmol/L (137-145)
[2024-02-18 05:29] LABS: Potassium 2.7 mmol/L (3.4-5.1)
[2024-02-18] MEDS: POTASSIUM CHLORIDE 20 MEQ TAB 40 MEQ PO ×4 (06:05→16:39)
[2024-02-18] MEDS: HYDRALAZINE 20 MG/ML VIAL IV ×2 (06:42→12:43)
[2024-02-18] MEDS: AMLODIPINE 5 MG TABLET 10 MG PO (06:42)
[2024-02-18] MEDS: AMIODARONE 360 MG/200 ML PIGGYBACK 16.7 MG IV (07:27)
[2024-02-18] MEDS: AMIODARONE 180 MG/100 ML PIGGYBACK 16.7 MG IV (07:55)
[2024-02-18 07:59] LABS: Magnesium 1.9 mg/dL (1.6-2.3)
[2024-02-18] MEDS: ACETAMINOPHEN 325 MG TABLET 650 MG PO (09:07)
[2024-02-18 12:37] LABS: Hemoglobin A1C% w Est Avg Glu 5.4 % (4.0-6.0)
--- NOTE | 2024-02-18 15:50 | CM.DANOTE ---
Addendum entered by SINA Gallegos 02/18/24 17:03: per chart, pt potassium over 3 and per provider, cleared for dc home. Per Jaleesa, really wants OP f/u within 7 days with computer numerical control grinder. Due to EOD Monday dc, unable to schedule OP F/u prior to pt leaving. RAG CUTTING MACHINE TENDER messaged TCM team, will plan to follow up tomorrow (Monday) P: Dc home with OP PCP f/u within 7 days. This RAG CUTTING MACHINE TENDER will f/u with TCM team Monday. ROSEMARY Original Note: DCP Assessment Note pt is a 43yo M here with hypertension and acute hypokalemia PCP Rose Payer laboy and self pay RAG CUTTING MACHINE TENDER reviewed EMR. per provider in morning rounds, pt can dc home if K over 3. pending labs at 1600. Per Dr. Lazcano, pt has not seen PCP (Rose) in 6ish years, wants PCP f/u within 7 days of dc from . Per RN, anticipate no CM needs. RAG CUTTING MACHINE TENDER met with pt in room and introduced self and role. Two school aged sons with him in room. Pt indep/active at baseline. Lives with spouse Dee and children in [place]. hopeful to dc home. reports if needing PCP f/u would prefer to see Rose if possible rather than a different provider. reports no other CM needs at this time. P: home either late Monday vs when medically stable (potassium WNL). CM team will assist in PCP f/u to best of ability. CM team will continue to follow closely SINA Gallegos Discharge Planning/Care Management CM Discharge Assessment Start: 02/18/24 15:48 Freq: Status: Active Protocol: Document 02/18/24 15:48 (Rec: 02/18/24 15:49 [id number]) Discharge Planning Assessment Assigned Design Lead SINA Carson DPOA/Assigned Designee Name Dee, spouse Contact Information [phone] Advance Directives? No History Provided By Patient Prior Living Arrangements House Household Members spouse Type of transporation used prior to Drives own vehicle admit Independent with ADL's Yes Is patient alert and oriented? Yes Discharge Plan Home Referrals Initiated None needed Whiteboard Updated in Patient Room with Yes name and ext. # of Design Lead Review Status In Process Please Provide Date Initial DC 02/18/24 Assessment Was Performed Next Review Type Continued Stay Review
[2024-02-18 16:22] LABS: HEMOLYSIS < 15 (0-50); Potassium 3.4 mmol/L (3.4-5.1)
--- NOTE | 2024-02-18 16:57 | PM.DS.1 ---
History of Present Illness History of Present Illness Date Patient Seen: 02/18/24 Chief complaint: high bp Narrative: 43-year-old man on who has not seen a primary care provider in several years, with history of hypertension, similarly off medications for the past several years, presented today with palpitations. He was found to have a serum potassium of 2.2 with EKG changes and was administered IV potassium riders, and experienced improvement in his palpitations and normalization of his EKG patterns. He is admitted for further management and evaluation. He notes a long-standing history of hypertension dating back to age 13. Previous workup has been unrevealing. He was on lisinopril/hydrochlorothiazide for many years but stopped over 5 years ago due to his frequent travel schedule, and inability to arrange office follow-up visits. He denies chest pain, shortness of breast, nausea, vomiting, diarrhea, diuretic use, ljhu-ndu-bawrcgb supplements besides vitamin C and fish oil, licorice ingestion, but does note a significant family history of high blood pressure. Discharge Providers Provider Date of admission: 02/16/24 16:09 Discharge Date: 02/18/24 Primary care physician: Jorge Rose MD Discharge provider: Michael Lazcano MD Summary Hospital Course Discharge Diagnosis: 1. Severe hypokalemia with symptomatic PVCs and ventricular tachycardia, treated and resolved 2. Severe hypertension, treated and significantly improved, rule out hyperaldosteronism, other secondary hypertensive causes 3. Obesity. Hospital Course: 43-year-old man presented with symptomatic palpitations was found to have severe hypokalemia with potassium of 2.2 and EKG changes including bigeminal PVCs and asymptomatic ventricular tachycardia, in conjunction with blood pressures up to 280/140. He was otherwise asymptomatic without headache, chest pain, shortness of breath or neurologic symptoms. He was administered prophylactic amiodarone infusion until his potassium improved. He was administered intravenous and oral potassium with potassium improved to 3.4 at discharge. he was placed on a nicardipine drip and transition to oral amlodipine and spironolactone. He is instructed to continue potassium for an additional 3 days with close outpatient follow-up of potassium levels as well as laboratory testing obtained in the hospital. Pending a this time as a plasma renin-aldosterone ratio and 24 hour urine for VMA and metanephrines. Consider outpatient nephrology consultation. The patient is feeling well at time discharge in interest in outpatient management. No other issues arose. Status at Discharge Cognitive/behavioral status at discharge: oriented Functional status at discharge: independent ambulation Overall status at discharge: patient is back to baseline Time Spent with Patient Time spent: Greater than 30 minutes Exam Vital Signs (past 8 hours): - 02/18/24 09:00 02/18/24 09:12 02/18/24 09:12 Pulse Rate 98 H 95 H Respiratory Rate 35 H 23 Blood Pressure 187/84 H Pulse Oximetry 97 97 Oxygen Delivery Method 02/18/24 09:30 02/18/24 10:00 02/18/24 10:00 Pulse Rate 96 H 94 H Respiratory Rate 32 H 36 H Blood Pressure Pulse Oximetry 97 97 Oxygen Delivery Method Room Air 02/18/24 10:30 02/18/24 10:57 02/18/24 10:57 Pulse Rate 97 H 96 H Respiratory Rate 24 24 Blood Pressure 178/81 H Pulse Oximetry 98 98 Oxygen Delivery Method 02/18/24 11:00 02/18/24 11:30 02/18/24 11:39 Pulse Rate 92 H 90 95 H Respiratory Rate 37 H 34 H 20 Blood Pressure Pulse Oximetry 97 96 97 Oxygen Delivery Method 02/18/24 11:39 02/18/24 12:35 02/18/24 12:38 Pulse Rate 94 H Respiratory Rate 22 Blood Pressure 179/78 H 192/91 H Pulse Oximetry Oxygen Delivery Method 02/18/24 12:38 02/18/24 12:41 02/18/24 12:43 Pulse Rate 97 H 91 H 96 H Respiratory Rate 11 L 16 Blood Pressure 192/91 H 191/91 H Pulse Oximetry 97 Oxygen Delivery Method 02/18/24 13:00 02/18/24 13:03 02/18/24 13:03 Pulse Rate 97 H 102 H Respiratory Rate 29 H 26 H Blood Pressure 168/74 H Pulse Oximetry 98 Oxygen Delivery Method 02/18/24 13:09 02/18/24 13:30 02/18/24 14:00 Pulse Rate 95 H 95 H 97 H Respiratory Rate 35 H 30 H Blood Pressure 165/74 H Pulse Oximetry 97 97 Oxygen Delivery Method 02/18/24 14:30 02/18/24 15:00 02/18/24 15:30 Pulse Rate 98 H 92 H 92 H Respiratory Rate 28 H 29 H 27 H Blood Pressure Pulse Oximetry 98 99 99 Oxygen Delivery Method 02/18/24 16:00 02/18/24 16:22 02/18/24 16:22 Pulse Rate 91 H 92 H Respiratory Rate 42 H 14 Blood Pressure 169/77 H Pulse Oximetry 98 98 Oxygen Delivery Method Oxygen Delivery Method Room Air Oxygen Flow Rate 0 Narrative Exam Narrative: GENERAL: This is a well-nourished, well-developed patient, in no apparent distress. EYES: Pupils equal round and reactive. Extraocular motions intact. No scleral icterus. No injection or drainage. ENT: Mucous membranes pink and moist. NECK: Trachea midline. No JVD, bruits or lymphadenopathy. Supple, nontender, no meningeal signs. CARDIOVASCULAR: Regular rate and rhythm without murmurs, gallops, or rubs. RESPIRATORY: Clear to auscultation. GASTROINTESTINAL: Abdomen soft, non-tender, nondistended. EXTREMITIES: No clubbing, cyanosis, or edema. NEUROLOGIC: Alert, oriented, speech fluent, full upper and lower motor strength, no focal deficits evident. DERMATOLOGIC: No rashes or skin lesions. Objective Labs 02/17/24 06:58 02/18/24 15:56 Labs: Laboratory Results - last 24 hr 02/17/24 02/17/24 02/18/24 15:25 20:00 03:50 Sodium 135 L Potassium 2.6 L* 2.7 L* Chloride 99 Carbon Dioxide 31 BUN 10 Creatinine 0.90 Estimated GFR > 60 BUN/Creatinine Ratio 11.1 Glucose 101 H Hemoglobin A1c Calcium 8.3 L Magnesium 1.8 1.9 Nasal Screen MRSA (PCR) Not detected 02/18/24 02/18/24 15:56 16:00 Sodium Potassium 3.4 Chloride Carbon Dioxide BUN Creatinine Estimated GFR BUN/Creatinine Ratio Glucose Hemoglobin A1c 5.4 Calcium Magnesium Nasal Screen MRSA (PCR) [facility] Surgical History Status post myringotomy with insertion of tube History of tonsillectomy Status post knee surgery Family History Brother Age: 39 Essential hypertension Father Essential hypertension Grandfather Age: 85 Essential hypertension Grandmother Age: 84 Essential hypertension Mother Age: 62 Essential hypertension Grandfather Cerebrovascular accident (CVA), unspecified mechanism Grandmother Dementia Social History household members: spouse Smoking Status: Never smoker Discharge Plan Discharge Plan Patient Disposition: Home Provider Discharge Comment: Follow-up with new primary care provider this week (pending arrangements) Discharge orders & Medications Prescriptions: New amlodipine 10 mg tablet 10 mg PO DAILY Qty: 30 0RF potassium chloride 20 mEq tablet,ER particles/crystals 20 meq PO BID Qty: 6 0RF spironolactone 50 mg tablet 50 mg PO DAILY Qty: 30 0RF Follow up/Referrals: Jorge Rose MD [Primary Care Provider] - Visit Report/Discharge Packet Stand Alone Forms: Patient Portal/API, Stroke Signs & Symptoms Discharge Data Primary Care Provider: Jorge Rose Attending Provider: Michael Lazcano V Admit Date/Time: 02/16/24 16:09 Quality MIPS - Admit I confirm the patient?s Advance Care Plan is present, Code status is documented, Surrogate decision maker is in patient?s record [If Yes, STOP here]: Yes MIPS - Meds 'Current medications' to include all prescriptions, ntxe-vmu-niamkar products, herbals, cannabis/cannabidiol products, and vitamin/mineral/dietary (nutritional) supplements. I have utilized all available resources to obtain, update, or review the patient?s current medications. [If Yes, STOP here]: Yes MIPS - DC The patient has a history of heart transplant or Left Ventricular Assist Device (LVAD). If yes, STOP here.: No The patient has current or prior documentation of left ventricular ejection fraction (LVEF) less than or equal to 40%, or moderate or severely depressed left ventricular systolic function.: No A. The patient was prescribed or already taking an Angiotensin-Converting Enzyme (EMMETT) Inhibitor, or Angiotensin Receptor Juwan (ARB).: No B. The patient was prescribed or already taking a beta-juwan. [If Yes to Both A & B, STOP here]: No Patient not prescribed/taking EMMETT or ARB, no reason given.: No Patient not prescribed/taking beta-juwan, no reason given.: No IH PROFEE Charge Codes Discharge inpatient/observation: [id number]
[2024-02-18] MEDS: SPIRONOLACTONE 25 MG TABLET 50 MG PO (16:58)
== END 2024-02-18 17:50 | disposition home or self-care (01) | DRG 641 ==
LOC: ED 14:42 → AC 16:09 → ICU 02-17 12:38
PROVIDERS: Internal Medicine; Admitting Provider Internal Medicine; Emergency Provider Emergency Medicine; Family Provider Family Medicine; PCP Family Medicine; Referring Provider Emergency Medicine; Visit Provider Internal Medicine
DX: E87.6 Hypokalemia (principal); I47.20 Ventricular tachycardia, unspecified; I16.1 Hypertensive emergency; Z68.41 Body mass index [BMI] 40.0-44.9, adult; E66.9 Obesity, unspecified; I10 Essential (primary) hypertension; I49.3 Ventricular premature depolarization
CPT/HCPCS: 36415; 70450; 71045; 74170; 80048; 80053; 80305; 82088; 82550; 83036; 83690; 83735; 83835; 83880; 84132; 84244; 84484; 84585; 85025; 85379; 85610; 85730; 87797; 93005; 93306; 96365; 96366; 96367; 96368; 96375; 96376; 99284; 99285; 99291; 99292; G0378; J0282; J0360; Q9967

== ENCOUNTER → 2024-02-26 13:18 | Outpatient (CLI) | payer OTHER, SELFPAY ==
[2024-02-17 09:13] VITALS: BMI 44.3
[2024-02-26 13:54] LABS: BUN Creatinine Ratio 18.4 (6-22); Blood Urea Nitrogen 18 mg/dL (9-20); Carbon Dioxide 27 mmol/L (22-32); Chloride 103 mmol/L (98-107); Estimated Glomerular Filt Rate > 60 mL/min (>60); Glucose 101 mg/dL (70-100); HEMOLYSIS < 15 (0-50); Potassium 4.5 mmol/L (3.4-5.1); Sodium 140 mmol/L (137-145)
== END ==
PROVIDERS: PCP Family Medicine; Referring Provider Family Medicine; Visit Provider Family Medicine
DX: I10 Essential (primary) hypertension (principal); I16.0 Hypertensive urgency; E66.9 Obesity, unspecified
CPT/HCPCS: 36415; 80048

== ENCOUNTER → 2024-03-21 08:05 | Outpatient (CLI) | payer OTHER, SELFPAY ==
[2024-02-17 09:13] VITALS: BMI 44.3
[2024-03-21 09:57] LABS: BUN Creatinine Ratio 18.1 (6-22); Blood Urea Nitrogen 19 mg/dL (9-20); Calcium 9.2 mg/dL (8.4-10.2); Carbon Dioxide 28 mmol/L (22-32); Chloride 106 mmol/L (98-107); Estimated Glomerular Filt Rate > 60 mL/min (>60); Glucose 93 mg/dL (70-100); HEMOLYSIS < 15 (0-50); Potassium 4.2 mmol/L (3.4-5.1); Sodium 141 mmol/L (137-145)
== END ==
PROVIDERS: PCP Family Medicine; Referring Provider Family Medicine; Visit Provider Family Medicine
DX: I10 Essential (primary) hypertension (principal); E87.6 Hypokalemia
CPT/HCPCS: 36415; 80048

== ENCOUNTER 2024-05-04 10:07 | Emergency (ER) | payer OTHER, SELFPAY ==
[2024-02-17 09:13] VITALS: BMI 44.3
[2024-05-04] VITALS (7 sets, daily range): BP systolic 135–227; BP diastolic 84–108; PULSE 52–113; RESP 15–22; TEMP 37.5; O2SAT 97–100; BMI 49.1
--- NOTE | 2024-05-04 10:18 | DI.RAD.S_ITS ---
PROCEDURE: XR CHEST 1V INDICATIONS: chest pain TECHNIQUE: One view of the chest was acquired. COMPARISON: [facility], CR, XR CHEST 1V, 02/16/2024, 14:07. FINDINGS: Surgical changes and devices: None. Lungs and pleura: Low lung volumes. No dense airspace disease or pleural effusions. Mediastinum: Normal heart size, unchanged Bones and chest wall: Unremarkable IMPRESSION: No acute radiographic abnormality on this single view study with low lung volumes. Dictated by: Russell Cabrales M.D. on 05/04/2024 at 10:04 Approved by: Russell Cabrales M.D. on 05/04/2024 at 10:04
--- NOTE | 2024-05-04 10:27 | EKG_ITS ---
[place] [address] [address] [place] [id number] Test Date: 2024-05-04 Pat Name: Robert Arceo Department: [facility] Room: Gender: Male Youth Care Specialist: LILLIAM : 1980 Requested By: Order Number: [id number] Reading MD: Derrick Erazo Measurements Intervals [place] Rate: 95 P: 50 WA: 160 QRS: -10 QRSD: 96 T: 75 QT: 446 QTc: 560 Interpretive Statements Critical Test Result: Long QTc Normal sinus rhythm, PVC's Nonspecific ST abnormality Electronically Signed On 05-04-2024 17:07:00 PST by Derrick Erazo
[2024-05-04 11:11] LABS: Add Manual Diff / Slide Review NO; Basophils Absolute Auto 100 /uL (0-100); Eosinophils Absolute Auto 100 /uL (0-450); Eosinophils Percent Auto 1.4 % (2-4); Hematocrit 43.6 % (41-53); Lymphocytes Absolute Auto 2600 /uL (1100-4500); Lymphocytes Percent Auto 26.2 % (25-40); Mean Corpuscular HGB Conc 34.3 % (30-36); Mean Corpuscular Hemoglobin 28.2 PG (26-34); Mean Corpuscular Volume 82.2 fL (80-100); Monocytes Absolute Auto 700 /uL (0-900); Neutrophils Absolute Auto 6400 /uL (1500-7000); Neutrophils Percent Auto 64.4 % (50-75); Platelet Count 265 X10^3/uL (150-400); Red Blood Cell Count 5.31 X10^6/uL (4.5-5.9); White Blood Cell Count 9.9 X10^3/uL (4.5-11.0)
[2024-05-04 11:17] LABS: INR 1.1 (0.9-1.3)
[2024-05-04 11:20] LABS: Alanine Aminotransferase 30 IU/L (<50); Albumin 4.7 g/dL (3.5-5.0); Albumin Globulin Ratio 1.5 (1.0-2.8); Alkaline Phosphatase 74 U/L (38-126); Aspartate Aminotransferase 28 IU/L (17-59); BUN Creatinine Ratio 20.5 (6-22); Bilirubin Total 0.6 mg/dL (0.2-1.3); Blood Urea Nitrogen 24 mg/dL (9-20); Calcium 9.4 mg/dL (8.4-10.2); Carbon Dioxide 34 mmol/L (22-32); Chloride 97 mmol/L (98-107); Creatine Kinase 111 U/L (55-170); Estimated Glomerular Filt Rate > 60 mL/min (>60); Globulin 3.2 g/dL (1.7-4.1); Glucose 111 mg/dL (70-100); HEMOLYSIS < 15 (0-50); Lipase 91 U/L (23-300); Magnesium 1.5 mg/dL (1.6-2.3); PTT Partial Thromboplastin Tim 37 SECONDS (25.1-36.5); Potassium 2.8 mmol/L (3.4-5.1); Sodium 139 mmol/L (137-145); Total Protein 7.9 g/dL (6.3-8.2)
[2024-05-04 11:32] LABS: NT-proBNP (BNP-Adult 18+) 122 pg/mL (<125); Troponin I < 0.012 ng/mL (0.01-0.034)
--- NOTE | 2024-05-04 15:22 | ED_ITS ---
HPI - Arrhythmia/Palpitations General Chief Complaint: Arrhythmia/Palpitations Stated Complaint: low heart rate, high bp, per pt potassium is off Time Seen by Provider: 05/04/24 15:04 Source: patient Mode of arrival: Ambulatory History of Present Illness HPI narrative: Patient was a 44-year-old male. Has a history of hypertension. He was also has a history of hypokalemia. He recently was switched to a new blood pressure medication to try to preserve his potassium. He was not on potassium supplementation. He was here for evaluation of palpitations and an irregular heartbeat. He also states his blood pressure has been elevated since switching to the new medication. He denies lightheadedness. No abdominal pain, shortness of breath, nausea vomiting or change in bowel habits. Related Data Previous Rx's Medication Instructions Recorded amlodipine 10 mg tablet 10 mg PO DAILY #90 tabs 03/07/24 lisinopril 40 mg tablet 40 mg PO DAILY #90 tabs 03/07/24 chlorthalidone 50 mg tablet 50 mg PO DAILY #90 tabs 04/04/24 potassium chloride 10 mEq 10 meq PO DAILY #30 tabs 05/04/24 tablet,extended release potassium chloride 10 mEq 10 meq PO DAILY #30 tabs 05/04/24 tablet,extended release Allergies Allergy/AdvReac Type Severity Reaction Status Date / Time No Known Drug Allergies Allergy Verified 05/04/24 10:12 Review of Systems Review of Systems ROS Unobtainable: All systems reviewed & are unremarkable except as noted in HPI and below Patient History Surgical History Status post myringotomy with insertion of tube History of tonsillectomy Status post knee surgery Family History Brother Age: 39 Essential hypertension Father Essential hypertension Grandfather Age: 85 Essential hypertension Grandmother Age: 84 Essential hypertension Mother Age: 62 Essential hypertension Grandfather Cerebrovascular accident (CVA), unspecified mechanism Grandmother Dementia Social History household members: spouse Smoking Status: Never smoker Smoking Status: Never smoker alcohol intake frequency: a few times a month Exam Initial Vital Signs Initial Vital Signs: Vital Signs Temperature 99.5 F 05/04/24 10:12 Pulse Rate 52 L 05/04/24 10:12 Respiratory Rate 15 05/04/24 10:12 Blood Pressure 135/94 H 05/04/24 10:12 Pulse Oximetry 100 05/04/24 10:12 Oxygen Delivery Method Room Air 05/04/24 10:12 Const General: cooperative, comfortable and No ill appearing [facility] Head: normal to inspection and normocephalic Resp Effort & Inspection: normal respiratory effort Auscultation: clear to auscultation bilaterally Cardio Rate: regular rate Rhythm: abnormal rhythm GI Inspection: normal to inspection Skin General: no rashes or lesions noted Neuro General: patient alert, patient awake, patient oriented x3 and moves all extremities Extrem General: No edema Course Orders Ordered: ED Orders 05/04/24 10:18 XR chest 1V Stat EKG-12 Lead Stat 05/04/24 11:01 Complete Blood Count AUTO DIFF Stat Comprehensive Metabolic Panel Stat Lipase Stat Magnesium Stat NT-proBNP (BNP-Adult 18+) Stat PTT Partial Thromboplastin Maikol Stat Prothrombin Time INR Stat Troponin & CK Cardiac Panel Stat Discontinued Medications Potassium Chloride (Potassium Chloride 20 Meq Tab) 40 meq PO NOW ONE Stop: 05/04/24 15:23 Last Admin: 05/04/24 15:32 Dose: 40 meq Documented By: TRINITY Vital Signs Vital signs: Vital Signs - 8 hr 05/04/24 14:58 05/04/24 14:59 05/04/24 14:59 Pulse Rate 66 60 Respiratory Rate 22 Blood Pressure 224/108 H Pulse Oximetry 98 97 05/04/24 15:00 05/04/24 15:01 05/04/24 15:01 Pulse Rate 104 H 113 H Respiratory Rate 22 22 Blood Pressure 227/92 H Pulse Oximetry 98 97 05/04/24 15:30 05/04/24 15:31 05/04/24 15:31 Pulse Rate 89 98 H Respiratory Rate 18 16 Blood Pressure 199/84 H Pulse Oximetry 98 98 MDM - Arrhythmia/Palpitations Lab Data Attestation: I reviewed the patient's lab results. 05/04/24 11:01 05/04/24 11:01 Labs: Lab Results 05/04/24 Range/Units 11:01 WBC 9.9 (4.5-11.0) X10^3/uL RBC 5.31 (4.5-5.9) X10^6/uL Hgb 15.0 (13.5-17.5) g/dL Hct 43.6 (41-53) % MCV 82.2 (80-100) fL MCH 28.2 (26-34) PG MCHC 34.3 (30-36) % RDW 14.0 (11.6-14.8) % Plt Count 265 (150-400) X10^3/uL Neut % (Auto) 64.4 (50-75) % Lymph % (Auto) 26.2 (25-40) % [place] % (Auto) 7.0 (3-14) % Eos % (Auto) 1.4 L (2-4) % Baso % (Auto) 1.0 (0-2) % Neut # (Auto) 6400 (0695-4918) /uL Lymph # (Auto) 2600 (4154-8163) /uL [place] # (Auto) 700 (0-900) /uL Eos # (Auto) 100 (0-450) /uL Baso # (Auto) 100 (0-100) /uL PT 12.0 (9.4-12.5) SECONDS INR 1.1 (0.9-1.3) APTT 37 H (25.1-36.5) SECONDS Sodium 139 (137-145) mmol/L Potassium 2.8 L (3.4-5.1) mmol/L Chloride 97 L (98-107) mmol/L Carbon Dioxide 34 H (22-32) mmol/L BUN 24 H (9-20) mg/dL Creatinine 1.17 (0.66-1.25) mg/dL Estimated GFR > 60 (>60) mL/min BUN/Creatinine Ratio 20.5 (6-22) Glucose 111 H (70-100) mg/dL Calcium 9.4 (8.4-10.2) mg/dL Magnesium 1.5 L (1.6-2.3) mg/dL Total Bilirubin 0.6 (0.2-1.3) mg/dL AST 28 (17-59) IU/L ALT 30 (<50) IU/L Alkaline Phosphatase 74 (38-126) U/L Total Creatine Kinase 111 (55-170) U/L Troponin I < 0.012 (0.01-0.034) ng/mL NT-Pro-B Natriuret Pep 122 (<125) pg/mL Total Protein 7.9 (6.3-8.2) g/dL Albumin 4.7 (3.5-5.0) g/dL Globulin 3.2 (1.7-4.1) g/dL Albumin/Globulin Ratio 1.5 (1.0-2.8) Lipase 91 (23-300) U/L Imaging Data Chest x-ray: Radiologist's Impresson: PROCEDURE: XR CHEST 1V INDICATIONS: chest pain TECHNIQUE: One view of the chest was acquired. COMPARISON: [facility], , XR CHEST 1V, 02/16/2024, 14:07. FINDINGS: Surgical changes and devices: None. Lungs and pleura: Low lung volumes. No dense airspace disease or pleural effusions. Mediastinum: Normal heart size, unchanged Bones and chest wall: Unremarkable IMPRESSION: No acute radiographic abnormality on this single view study with low lung volumes ECG Data Attestation: I personally reviewed and interpreted this ECG as follows: Interpretation: Sinus rhythm with frequent PVCs and bigeminy pattern Ventricular rate 95 MDM Narrative Medical decision making narrative: Patient was having frequent PVCs on the monitor and he states he was having some of the palpitations that he was having earlier today. He was hypertensive however low suspicion for acute cranial hemorrhage, CVA, TIA, ACS. He was not in renal failure. He was afebrile. His potassium is 2.8. He was tolerating oral intake. Will send home with a prescription for potassium supplementation. His magnesium was slightly low as well and he does have magnesium at home and would rather just take that medication rather than receive IV magnesium here in the ER. I do recommend that he take his blood pressure at home as his blood pressure may start to level out over the next several days/weeks as he just switched to new blood pressure medication. Advised that he contact his primary care doctor for a follow-up. He was given return precautions. He expressed understanding and agreement. Discharge Plan Departure Patient Disposition: Home Clinical Impression: Essential hypertension, Frequent PVCs, Hypokalemia Instructions: Premature Ventricular Beats, DI for Hypokalemia Activity Restrictions/Additional Instructions: Continue to take your blood pressure at home like we discussed. Take the potassium has been discussed and also the magnesium. On Monday contact your primary care doctor for a follow-up. Return to the emergency department for new symptoms. Prescriptions: New potassium chloride 10 mEq tablet extended release 10 meq PO DAILY Qty: 30 0RF potassium chloride 10 mEq tablet extended release 10 meq PO DAILY Qty: 30 0RF No Action lisinopril 40 mg tablet 40 mg PO DAILY Qty: 90 3RF amlodipine 10 mg tablet 10 mg PO DAILY Qty: 90 3RF chlorthalidone 50 mg tablet 50 mg PO DAILY Qty: 90 3RF Referrals: Jorge Rose MD [Primary Care Provider] - Stand Alone Forms: Patient Portal/API/Survey
[2024-05-04] MEDS: POTASSIUM CHLORIDE 20 MEQ TAB 40 MEQ PO (15:32)
== END 2024-05-04 15:37 | disposition home or self-care (01) ==
PROVIDERS: Emergency Provider Emergency Medicine; PCP Family Medicine
DX: I10 Essential (primary) hypertension (principal); I49.3 Ventricular premature depolarization; E87.6 Hypokalemia
CPT/HCPCS: 71045; 80053; 82550; 83690; 83735; 83880; 84484; 85025; 85610; 85730; 93005; 99283; 99284

== ENCOUNTER → 2024-05-13 10:38 | Outpatient (CLI) | payer OTHER, SELFPAY ==
[2024-02-17 09:13] VITALS: BMI 44.3
[2024-05-13 12:50] LABS: BUN Creatinine Ratio 20.5 (6-22); Blood Urea Nitrogen 23 mg/dL (9-20); Carbon Dioxide 39 mmol/L (22-32); Chloride 96 mmol/L (98-107); Estimated Glomerular Filt Rate > 60 mL/min (>60); Glucose 100 mg/dL (70-100); HEMOLYSIS < 15 (0-50); Magnesium 1.7 mg/dL (1.6-2.3); Potassium 3.2 mmol/L (3.4-5.1); Sodium 141 mmol/L (137-145)
== END ==
PROVIDERS: PCP Family Medicine; Referring Provider Family Medicine; Visit Provider Family Medicine
DX: E87.6 Hypokalemia (principal); I10 Essential (primary) hypertension; D35.00 Benign neoplasm of unspecified adrenal gland
CPT/HCPCS: 36415; 80048; 83735; 83835

== ENCOUNTER → 2024-05-16 09:53 | Outpatient (CLI) | payer OTHER, SELFPAY ==
[2024-02-17 09:13] VITALS: BMI 44.3
== END ==
PROVIDERS: PCP Family Medicine; Referring Provider Family Medicine; Visit Provider Family Medicine
DX: I10 Essential (primary) hypertension (principal); E87.6 Hypokalemia
CPT/HCPCS: 83835; 84585

== ENCOUNTER → 2024-05-21 09:20 | Outpatient (CLI) | payer OTHER, SELFPAY ==
[2024-02-17 09:13] VITALS: BMI 44.3
[2024-05-21 10:39] LABS: BUN Creatinine Ratio 15.1 (6-22); Blood Urea Nitrogen 18 mg/dL (9-20); Calcium 9.4 mg/dL (8.4-10.2); Carbon Dioxide 29 mmol/L (22-32); Chloride 103 mmol/L (98-107); Estimated Glomerular Filt Rate > 60 mL/min (>60); Glucose 102 mg/dL (70-100); HEMOLYSIS < 15 (0-50); Magnesium 1.8 mg/dL (1.6-2.3); Potassium 4.1 mmol/L (3.4-5.1); Sodium 139 mmol/L (137-145)
== END ==
PROVIDERS: PCP Family Medicine; Referring Provider Family Medicine; Visit Provider Family Medicine
DX: E87.6 Hypokalemia (principal); I49.3 Ventricular premature depolarization; I10 Essential (primary) hypertension
CPT/HCPCS: 36415; 80048; 83735

== ENCOUNTER → 2024-05-29 11:08 | Outpatient (CLI) | payer OTHER, SELFPAY ==
[2024-02-17 09:13] VITALS: BMI 44.3
[2024-05-29 12:52] LABS: BUN Creatinine Ratio 18.3 (6-22); Blood Urea Nitrogen 22 mg/dL (9-20); Calcium 9.7 mg/dL (8.4-10.2); Carbon Dioxide 28 mmol/L (22-32); Chloride 102 mmol/L (98-107); Estimated Glomerular Filt Rate > 60 mL/min (>60); Glucose 88 mg/dL (70-100); HEMOLYSIS < 15 (0-50); Potassium 4.5 mmol/L (3.4-5.1); Sodium 139 mmol/L (137-145)
== END ==
PROVIDERS: PCP Family Medicine; Referring Provider Family Medicine; Visit Provider Family Medicine
DX: E87.6 Hypokalemia (principal)
CPT/HCPCS: 36415; 80048

== ENCOUNTER → 2024-06-27 08:15 | Outpatient (CLI) | payer OTHER, SELFPAY ==
[2024-02-17 09:13] VITALS: BMI 44.3
[2024-06-27 09:14] LABS: BUN Creatinine Ratio 16.5 (6-22); Blood Urea Nitrogen 17 mg/dL (9-20); Calcium 9.7 mg/dL (8.4-10.2); Carbon Dioxide 23 mmol/L (22-32); Chloride 107 mmol/L (98-107); Estimated Glomerular Filt Rate > 60 mL/min (>60); Glucose 109 mg/dL (70-100); HEMOLYSIS < 15 (0-50); Potassium 4.5 mmol/L (3.4-5.1); Sodium 142 mmol/L (137-145)
[2024-06-27 09:44] LABS: Thyroid Stimulating Hormone 0.635 uIU/mL (0.47-4.68)
[2024-06-28 08:45] LABS: Triiodothyronine T3 Total 133 ng/dL (71-180)
== END ==
PROVIDERS: PCP Family Medicine; Referring Provider Internal Medicine Nephrology; Visit Provider Internal Medicine Nephrology
DX: N18.9 Chronic kidney disease, unspecified (principal); E87.5 Hyperkalemia; I15.2 Hypertension secondary to endocrine disorders; R80.1 Persistent proteinuria, unspecified
CPT/HCPCS: 36415; 80048; 82088; 82533; 84244; 84436; 84443; 84480

== ENCOUNTER → 2024-07-23 07:31 | Outpatient (CLI) | payer OTHER, SELFPAY ==
[2024-02-17 09:13] VITALS: BMI 44.3
[2024-07-23 08:10] LABS: Creatinine Urine Random 134.72 mg/dL; Protein (Total) Urine Random 46 mg/dL (0-12); Protein Creatinine Ratio Urine 0.34 GRAM/24H
[2024-07-23 08:30] LABS: Microalbumin Urine Random 29.7 mg/dL (0-1.6)
[2024-07-23 08:54] LABS: BUN Creatinine Ratio 20.4 (6-22); Blood Urea Nitrogen 22 mg/dL (9-20); Calcium 9.2 mg/dL (8.4-10.2); Carbon Dioxide 24 mmol/L (22-32); Chloride 105 mmol/L (98-107); Estimated Glomerular Filt Rate > 60 mL/min (>60); Glucose 103 mg/dL (70-100); HEMOLYSIS < 15 (0-50); Potassium 4.4 mmol/L (3.4-5.1); Sodium 138 mmol/L (137-145)
[2024-07-23 09:23] LABS: Cortisol AM (Before 10AM) 8.03 ug/dL (4.46-22.7)
[2024-07-23 09:24] LABS: Thyroid Stimulating Hormone 1.09 uIU/mL (0.47-4.68)
[2024-07-24 07:09] LABS: Triiodothyronine T3 Total 126 ng/dL (71-180)
== END ==
PROVIDERS: PCP Family Medicine; Referring Provider Internal Medicine Nephrology; Visit Provider Internal Medicine Nephrology
DX: N18.9 Chronic kidney disease, unspecified (principal); E87.5 Hyperkalemia; I15.2 Hypertension secondary to endocrine disorders; R80.1 Persistent proteinuria, unspecified
CPT/HCPCS: 36415; 80048; 82043; 82088; 82533; 82570; 84156; 84436; 84443; 84480

== ENCOUNTER → 2024-08-27 07:33 | Outpatient (CLI) | payer OTHER, SELFPAY ==
[2024-02-17 09:13] VITALS: BMI 44.3
[2024-08-27 09:29] LABS: Creatinine Urine Random 118.07 mg/dL; Protein (Total) Urine Random 25 mg/dL (0-12)
[2024-08-27 10:16] LABS: BUN Creatinine Ratio 18.6 (6-22); Blood Urea Nitrogen 21 mg/dL (9-20); Calcium 9.5 mg/dL (8.4-10.2); Carbon Dioxide 27 mmol/L (22-32); Chloride 103 mmol/L (98-107); Estimated Glomerular Filt Rate > 60 mL/min (>60); Glucose 99 mg/dL (70-99); HEMOLYSIS < 15 (0-50); Potassium 4.6 mmol/L (3.4-5.1); Sodium 139 mmol/L (137-145)
[2024-08-27 10:45] LABS: Cortisol AM (Before 10AM) 10.5 ug/dL (4.46-22.7)
[2024-08-27 10:49] LABS: Thyroid Stimulating Hormone 0.815 uIU/mL (0.47-4.68)
[2024-08-28 06:36] LABS: Triiodothyronine T3 Total 130 ng/dL (71-180)
[2024-09-01 07:35] LABS: Aldosterone/Renin Activity Rat 5.1 (.); Plama Renin, LC/MS/MS 3.7 ng/mL/hr (.)
== END ==
PROVIDERS: PCP Family Medicine; Referring Provider Internal Medicine Nephrology; Visit Provider Internal Medicine Nephrology
DX: N18.9 Chronic kidney disease, unspecified (principal); E87.5 Hyperkalemia; I15.2 Hypertension secondary to endocrine disorders; R80.1 Persistent proteinuria, unspecified
CPT/HCPCS: 36415; 80048; 82043; 82088; 82533; 82570; 84156; 84244; 84436; 84443; 84480

== ENCOUNTER → 2024-11-28 07:56 | Outpatient (CLI) | payer OTHER, SELFPAY ==
[2024-02-17 09:13] VITALS: BMI 44.3
[2024-11-28 08:59] LABS: Blood Urea Nitrogen 29 mg/dL (9-20); Calcium 9.6 mg/dL (8.4-10.2); Carbon Dioxide 25 mmol/L (22-32); Chloride 102 mmol/L (98-107); Estimated Glomerular Filt Rate > 60 mL/min (>60); Glucose 98 mg/dL (70-99); HEMOLYSIS < 15 (0-50); Potassium 4.7 mmol/L (3.4-5.1); Sodium 136 mmol/L (137-145)
[2024-11-28 09:19] LABS: T4 Total Thyroxine 11.00 ug/dL (5.5-11.0)
[2024-11-28 09:31] LABS: Cortisol AM (Before 10AM) 9.56 ug/dL (4.46-22.7)
[2024-11-28 09:32] LABS: Thyroid Stimulating Hormone 1.26 uIU/mL (0.47-4.68)
[2024-11-28 10:01] LABS: Protein (Total) Urine Random 17 mg/dL (0-12)
[2024-12-06 01:12] LABS: Aldosterone/Renin Activity Rat 4.9 (.); Plama Renin, LC/MS/MS 6.5 ng/mL/hr (.)
== END ==
PROVIDERS: PCP Family Medicine; Referring Provider Family Medicine; Visit Provider Internal Medicine Nephrology
DX: E87.5 Hyperkalemia (principal); I15.2 Hypertension secondary to endocrine disorders; N18.9 Chronic kidney disease, unspecified; R80.1 Persistent proteinuria, unspecified
CPT/HCPCS: 36415; 80048; 82043; 82088; 82533; 82570; 84156; 84244; 84436; 84443; 84480